=== PATIENT | male | born 1950 | race Caucasian/White ===

== ENCOUNTER 2024-03-02 12:27 | Outpatient (CLI) | payer MEDICARE, SELFPAY ==
--- NOTE | 2024-03-02 12:39 | CT_ITS ---
FINAL REPORT TECHNIQUE: Thin section axial images were obtained from the lung apices to the upper abdomen by computed tomography. Reformatted images were obtained and reviewed. This study was performed with techniques to keep radiation doses al low as reasonably achievable (ALARA). Individualized dose reduction techniques using automated exposure control or adjustment of mA and/or kV according to the patient's size were employed. CLINICAL HISTORY: SCREENING former smoker, quit 2.5 years ago. smoked 1 ppd x 50 years COMPARISON: None FINDINGS: CHEST CT LOW DOSE 73-year-old male, former smoker who quit 2 and half years ago, [id number] history. CTDI vol (mGy): 2.9 DLP (mGy-cm): 111.51 There is no axillary adenopathy. There is no mediastinal or hilar mass or adenopathy. The heart is normal in size. Severe coronary artery calcifications are present, responsible for the S designation. There is no pericardial or pleural effusion. Lung window images demonstrate a 3 mm lateral right upper lobe nodule best seen in image #20. There are also calcified granulomas present in the left upper lobe.. Limited images of the upper abdomen reveal a 16 mm low-attenuation mass in the right kidney, not accurately characterized without intravenous contrast, but which may represent a cyst.. IMPRESSION: Lung-RADS category 2S, the S designation for severe coronary artery calcifications. Recommend 12 month follow up low dose chest CT. Reviewed, Interpreted and Dictated by Gil Ray III, MD Transcribed by Yolanda Pablo Authenticated and [facility]
== END 2024-03-02 23:59 | disposition home or self-care (01) ==
LOC: RAD 12:28
PROVIDERS: PCP Internal Medicine Adolescent Medicine; Visit Provider Internal Medicine Adolescent Medicine
DX: Z87.891 Personal history of nicotine dependence (principal)
CPT/HCPCS: 71271

== ENCOUNTER 2024-03-16 07:01 | Outpatient (CLI) | payer MEDICARE, SELFPAY ==
[2024-03-16] VITALS (8 sets, daily range): BP systolic 82–149; BP diastolic 47–66; PULSE 58–80; RESP 16–18; TEMP 36.2; O2SAT 96–99; BMI 21.8
--- NOTE | 2024-03-16 07:08 | CT_ITS ---
APPROVED REPORT Draw Frame Runner: CLINICAL INDICATION Chest Pain TECHNIQUE Image Acquisition: A 128 slice MDCT scanner (Compass Enginea View) was used for data acquisition. A noncontrast coronary calcium scan was performed. A CT attenuation threshold of 130 Hounsfield units (HU) was used for the detection of calcium in contiguous voxels of 1 sq mm in area to be counted as individual lesions. Bolus tracking in the ascending aorta with a threshold of 180 HU was performed. Immediately afterwards, ECG synchronized cardiac CT was then performed from the cardiac base to apex using retrospective gating with ECG tube current modulation. A total of 85 mL of Isovue 370 mg/mL contrast medium was administered at 5 mL/sec followed by a saline flush using a biphasic injection protocol. A tube voltage of 120 KVp was used. The patient received the following medications prior to the cardiac CT. 125 mg of oral metoprolol 15 mg of oral ivabradine 0.8 mg of sublingual nitroglycerin The average heart rate at the time of acquisition was 55 bpm and regular. Image Reconstruction Transaxial images were reconstructed at 0.67 mm slide thickness. Data was reviewed interactively on an advanced workstation capable of 2 and 3-dimensional displays in all conventional reconstruction formats, including multiplanar reformations, maximum intensity projections, curved multiplanar reformations, and volume rendered reconstructions. When applicable, selected routine images describing the relevant coronary anatomy and pathology were saved and sent to PACS. Complications None Technical Quality Overall image quality was good. Coronary artery opacification was adequate. Total DLP (Dose-Length Product) is 1355.6 mGy-cm. The reported value represents the total of one or more individual components during the CT acquisition of this date and at this time, and as such, the same value may appear in more than one CT report depending on the interpreting/reporting physicians. COMPARISON None FINDINGS CT Coronary Calcium Scoring LMA (Left Main Artery) = 501 LAD (Left Anterior Descending) = 1130 LCX (Left Coronary Circumflex) = 65 RCA (Right Coronary Artery) = 1022 Total Calcium Score = 2717 using the AJ-130 method. The observed calcium score of 2717 is at 95th percentile for subjects of the same age, sex, and race/ethnicity. The interpretation of the calcium heart score is based on the following continuum*: 0 = no calcified plaque detected (risk of coronary artery disease is very low ??? less than 5%) 1-10 = calcium detected in extremely minimal levels (risk of coronary diseases is still low ??? less than 10%) 11-100 = mild levels of plaque detected with certainty (mild or minimal narrowing of heart arteries is likely) 101-400 = definite,at least moderate levels of plaque detected (relatively high risk of a heart attack within 3-5 years) >401-999 = extensive levels of plaque detected (high risk of heart attack, high levels of vascular disease are present, high likelihood of at least one significant coronary narrowing) *The calcium heart score quantifies the burden of coronary calcification/plaque in the coronary arteries. The calcium heart score is not able to evaluate the presence or burden of non-calcified (i.e. soft) plaque. There is also identifiable calcification in the ascending and descending thoracic aorta. Coronary CT Angiography The coronary arterial system is right dominant. Quantitative Stenosis Grading: Left Main (LM): The left main originates normally from the left sinus of Valsalva. The LM bifurcates into the left anterior descending artery and left circumflex artery. There is mixed calcified/noncalcified plaque in the ostial and proximal OM with up to
[2024-03-16 08:05] LABS: Anion Gap 11.4 mEq/L (5-15); Blood Urea Nitrogen 7 mg/dl (9-20); Calcium 9.8 mg/dl (8.4-10.2); Carbon Dioxide 27 mmol/L (22.0-30.0); Chloride 101 mmol/L (98-107); Creatinine Clearance Estimated 64 mL/min (50-200); Estimated Glomerular Filt Rate 111 ml/min (>60); GFR (African American) 135 ML/MIN (>60); Glucose 108 mg/dl (74-100); Potassium 4.4 mmoL/L (3.5-5.1); Sodium 135 mmol/L (136-145)
== END 2024-03-16 09:53 | disposition home or self-care (01) ==
PROVIDERS: PCP Internal Medicine Adolescent Medicine; Visit Provider Internal Medicine Adolescent Medicine
DX: I25.84 Coronary atherosclerosis due to calcified coronary lesion (principal); R07.9 Chest pain, unspecified
CPT/HCPCS: 36415; 75574; 80048; Q9967

== ENCOUNTER 2024-07-17 11:24 | Observation (INO) | payer MEDICARE, SELFPAY ==
[2024-07-17] VITALS (23 sets, daily range): BP systolic 99–151; BP diastolic 49–70; PULSE 75–103; RESP 10–18; TEMP 36.4–37; O2SAT 94–100; BMI 22.1; BMI 21.7
--- NOTE | 2024-07-17 11:33 | XR_ITS ---
PROCEDURE INFORMATION: Exam: XR Chest Exam date and time: 07/17/2024 11:44 AM Age: 73 years old Clinical indication: Cough and shortness of breath TECHNIQUE: Imaging protocol: Radiologic exam of the chest. Views: 1 view. COMPARISON: CT LUNG SCREENING 03/02/2024 12:41 PM FINDINGS: Lungs: Lung delgado appear somewhat hyperlucent and mildly hyperinflated likely secondary to COPD. No infiltrates or overt CHF. Pleural spaces: Unremarkable. No pleural effusion. No pneumothorax. Heart/Mediastinum: Unremarkable. No cardiomegaly. Bones/joints: No acute bony abnormalities detected. IMPRESSION: COPD. No active disease.
--- NOTE | 2024-07-17 11:38 | ECG_ITS ---
APPROVED REPORT Exam: Resting ECG HR:90 bpm ECG Measurements Heart Rate 90 AXES WV 144 P 68 QRSd 101 QRS 52 QT 349 T 64 QTc 396 Conclusion SINUS RHYTHM NORMAL ECG INTERPRETATION BASED ON A DEFAULT AGE OF 40 YEARS UNCONFIRMED REPORT Electronically signed by : Charles Ordonez, 07/21/2024 23:24:56
--- NOTE | 2024-07-17 11:50 | PC.NURSE ---
radiology at bedside.
[2024-07-17 11:53] LABS: Albumin Level 4.1 g/dl (3.5-5.0); Chloride 103 mmol/L (98-107); Potassium 3.6 mmoL/L (3.5-5.1); Sodium 133 mmol/L (136-145)
[2024-07-17 11:56] LABS: Alanine Aminotransferase 27 U/L (12-78); Albumin/Globulin Ratio 2.1 (1.1-1.8); Alkaline Phosphatase 61 U/L (38-126); Anion Gap 10.6 mEq/L (5-15); Aspartate Amino Transferase 35 U/L (17-59); Bilirubin,Total 0.5 mg/dl (0.2-1.3); Blood Urea Nitrogen 11 mg/dl (9-20); Calcium 8.8 mg/dl (8.4-10.2); Carbon Dioxide 23 mmol/L (22.0-30.0); Creatinine Clearance Estimated 65 mL/min (50-200); Estimated Glomerular Filt Rate 111 ml/min (>60); GFR (African American) 135 ML/MIN (>60); Glucose 111 mg/dl (74-100); Total Protein,Serum 6.1 g/dl (6.3-8.2)
[2024-07-17 12:08] LABS: Troponin I < 0.01 ng/ml (0.00-0.034)
--- NOTE | 2024-07-17 12:09 | ED_ITS ---
<Statement entered by Shavon Ordonez MD - 07/17/24 14:39> I was consulted by the JONNY, and we discussed the complexity of the problems being addressed. I approved the treatment and management plan for this patient's care in the emergency department, thus performing a substantive portion of the medical decision making. Shavon Ordonez MD, ABEL, FACEP Discharge Plan Disposition Patient Disposition: Admitted Chief Complaint: Dizziness Discharge ED Provider: Shavon Ordonez General Adult HPI General Chief complaint: Dizziness Stated complaint: lab work and weakness Time Seen by Provider: 07/17/24 12:08 Mode of Arrival: Ambulatory Source of Information: Patient Limitations: No Limitations Description of Symptoms (Recalled from ER Triage Doc. by RN): pt presents from Dr. Wyman office with black tarry stool, dizziness/weakness, and possible pneumonia. pt states he first noticed his stool this past . pt alert and oriented. History of Present Illness HPI narrative: Patient presents for evaluation of melena and dizziness. Patient gives a 1 week history of dark tarry sticky stool since last . Additionally over the same time. Patient reports that he has been feeling dizzy on exertion that goes away with rest. He saw his PCP today who apparently told him that he could possibly have pneumonia in his left lung although I do not know if he did blood work. He denies chest pain fever chills hemoptysis hematochezia hematemesis hematuria. He is on aspirin and Plavix for peripheral vascular disease and femoral stents Related Data Home Medications ?Medication ?Instructions ?Recorded ?Confirmed amlodipine 10 mg tablet 10 mg PO DAILY 03/16/24 03/16/24 aspirin 81 mg capsule 81 mg PO DAILY 03/16/24 03/16/24 atorvastatin 40 mg tablet 40 mg PO DAILY 03/16/24 03/16/24 bisoprolol fumarate 5 mg tablet 5 mg PO DAILY 03/16/24 03/16/24 clopidogrel 75 mg tablet (Plavix) 75 mg PO DAILY 03/16/24 03/16/24 hydroxychloroquine 200 mg tablet 200 mg PO DAILY 03/16/24 03/16/24 multivit with minerals-folic 600 cap PO DAILY 03/16/24 03/16/24 acid-lycopene 0.4 mg-600 mcg capsule (Men's Daily) tamsulosin 0.4 mg capsule (Flomax) 0.4 mg PO DAILY 03/16/24 03/16/24 Allergies Allergy/AdvReac Type Severity Reaction Status Date / Time diclofenac Allergy Verified 03/16/24 07:39 Penicillins Allergy Verified 03/16/24 07:39 [facility] Disclaimer: The information contained in this section may have been updated after the patient was seen, as this information can be updated by other users. Medical History (Updated 03/16/24 @ 07:54 by Vince Sharma) Rheumatoid arteritis Skin cancer COPD (chronic obstructive pulmonary disease) Hyperlipidemia Hypertension Coronary artery disease Surgical History (Updated 03/16/24 @ 07:38 by Vince Sharma) H/O hernia repair History of xsfpy-ekxkf-zyescov bypass Social History (Updated 03/16/24 @ 07:41 by Vince Sharma) Smoking Status: Former smoker alcohol intake: current current occupational status: retired Other Medical History Have you received the Flu Vaccine for this season: No Have you received the Pneumonia Vaccine: No ROS Obtained: Yes Systems reviewed as appropriate & no additional complaints except as documented Physical Exam General General appearance: alert and in no apparent distress Respiratory Respiratory exam: Present normal lung sounds bilaterally Cardiovascular Cardiovascular exam: Present regular rate Neurological Exam Neurological exam: Present alert and oriented X3 Medical Decision Making Medical Records Medical records reviewed: Yes I reviewed the patient's medical records. Screening: Per USPSTF and CDC recommendations, given the prevalence of disease in our region, it is our hospital?s policy to screen for HIV and viral Hepatitis for all patients aged 18 and over and those with ongoing risk factors. [place] Inquiry Pt receiving controlled substance: No Vital Signs: 07/17/24 11:25 07/17/24 12:00 07/17/24 12:30 Temperature 98.2 F Temperature Source Oral Pulse Rate 75 79 Pulse Rate [Right Radial] 92 H Respiratory Rate 18 14 10 L Blood Pressure 141/63 H 139/65 Blood Pressure [Right Arm] 126/68 Blood Pressure Mean [Right Arm] 87 Blood Pressure Source Blood Pressure Source [Right Arm] Automatic Cuff Blood Pressure Position Blood Pressure Position [Right Arm] Sitting 02 Sat by Pulse Oximetry 99 100 99 Oxygen Delivery Method Room Air Room Air Room Air 07/17/24 12:42 07/17/24 12:46 07/17/24 13:00 Temperature Temperature Source Pulse Rate 91 H 88 79 Pulse Rate [Right Radial] Respiratory Rate 12 18 12 Blood Pressure 145/60 H 145/60 H 145/63 H Blood Pressure [Right Arm] Blood Pressure Mean [Right Arm] Blood Pressure Source Automatic Cuff Blood Pressure Source [Right Arm] Blood Pressure Position Sitting Blood Pressure Position [Right Arm] 02 Sat by Pulse Oximetry 99 99 98 Oxygen Delivery Method Room Air Room Air Room Air 07/17/24 13:14 Temperature 98.2 F Temperature Source Oral Pulse Rate 78 Pulse Rate [Right Radial] Respiratory Rate 18 Blood Pressure 145/63 H Blood Pressure [Right Arm] Blood Pressure Mean [Right Arm] Blood Pressure Source Automatic Cuff Blood Pressure Source [Right Arm] Blood Pressure Position Supine Blood Pressure Position [Right Arm] 02 Sat by Pulse Oximetry Oxygen Delivery Method Room Air Lab Data Lab results reviewed: Yes I reviewed the patient's lab results. Lab Results 07/17/24 11:30: WBC 6.6, RBC 2.79 L, Hgb 9.1 L, Hct 26.7 L, MCV 95.7 H, MCH 32.6 H, MCHC 34.1, RDW 13.7, Plt Count 214, MPV 7.6, Neut % (Auto) 79.1, Lymph % (Auto) 13.0, Mcminn % (Auto) 6.9, Eos % (Auto) 0.4, Baso % (Auto) 0.5, Neut # (Auto) 5.3, Lymph # (Auto) 0.9, Mcminn # (Auto) 0.5, Eos # (Auto) 0.0, Baso # (Auto) 0.0, Sodium 133 L, Potassium 3.6, Chloride 103, Carbon Dioxide 23, Anion Gap 10.6, BUN 11, Creatinine 0.70, Estimated Creat Clear 65, Estimated GFR 111, Est GFR ( Amer) 135, Glucose 111 H, Calcium 8.8, Total Bilirubin 0.5, AST 35, ALT 27, Alkaline Phosphatase 61, Troponin I < 0.01, Total Protein 6.1 L, Albumin 4.1, Globulin 2.0, Albumin/Globulin Ratio 2.1 H, Blood Type O Positive, Antibody Screen Negative 07/17/24 12:15: Stool Occult Blood Positive A 07/17/24 11:30 07/17/24 11:30 Orders (Tests/Meds): ED MEDICATIONS Generic Name Dose Route Start Last Admin Trade Name Freq PRN Reason Stop Dose Admin Pantoprazole Sodium 80 mg/ 100 mls @ 10 mls/hr 07/17/24 12:30 07/17/24 12:45 Sodium Chloride IV 07/20/24 12:29 10 mls/hr .Q10H LUBNA Administration Sodium Chloride 10 ml 07/17/24 11:40 07/17/24 12:42 Sodium Chloride 0.9% 10ml Flush Syringe IV 08/16/24 11:39 10 ml NEEDED PRN Administration Maintain IV Site Sodium Chloride 10 ml 07/17/24 12:42 07/17/24 12:42 Sodium Chloride 0.9% 10ml Syr (Rad Only) IV 08/16/24 12:41 10 ml NEEDED PRN Administration Maintain IV Site Discontinued Medications Generic Name Dose Route Start Last Admin Trade Name Trevorq PRN Reason Stop Dose Admin Iopamidol 75 ml 07/17/24 12:42 07/17/24 12:42 Iopamidol-370 (76%);100ml Bottle IV 07/17/24 12:43 75 ml ONCE ONE Administration ORDERS Category Date Time Status Type and Screen Stat BBK 07/17/24 11:[address] abdomen pelvis w con Stat Cat Scan 07/17/24 12:21 Completed Gastroenterology Consult [Consult to Gastroenterology] Cons 07/17/24 12:59 Active [CONS] Routine XR chest portable Stat Exams 07/17/24 11:33 Completed Complete Blood Count Auto Diff Stat Lab 07/17/24 11:30 Completed Comprehensive Metabolic Panel Stat Lab 07/17/24 11:30 Completed HIV (1&2) Antibody Rapid Stat Lab 07/17/24 11:30 Received Hep C Ab with Reflex to RNA Stat Lab 07/17/24 11:30 Received Occult Blood,Stool Stat Lab 07/17/24 12:15 Completed Troponin I Q3H Lab 07/17/24 14:45 Ordered Troponin I Q3H Lab 07/17/24 17:45 Ordered Troponin I Stat Lab 07/17/24 11:30 Completed Medical Decision Narrative: In summary patient is a 73-year-old male who presents to the emergency department for evaluation of melena and dizziness on exertion. Patient is initially normotensive at 126/68 heart rate 92 satting at 99% on room air breathing 18 times a minute upon arrival, afebrile. Physical exam is remarkable for dark stool at the rectum and digital rectal exam confirms dark stool. It appears to be melanotic. He has no external hemorrhoids, normal breath sounds, Terri Coma Score 15 awake alert and oriented person place and circumstance bilateral tympanic membranes are normal. Differential diagnosis includes upper GI bleed versus vertigo versus dark stool due to medications etc. Initial workup will be conducted with stool for occult blood, CT scan abdomen pelvis, hematologic labs. Initial interventions were considered however we will await full workup before initiating. Initial workup reviewed by me shows that his stool is guaiac positive, hemoglobin hematocrit are 9.1 and 26.7 respectively with no shift, my informal interpretation of his plain film chest x-ray shows no acute intrathoracic problems however he does have COPD changes, my informal interpretation of CT scan abdomen pelvis shows no acute processes prior to radiology read. Given this I had interactive discussion with Dr. Johnson of gastroenterology regarding patient management and he will be started on a Protonix drip, held n.p.o. for endoscopy either later today or possibly tomorrow. Then I had an interactive discussion with hospital medicine regarding patient management and he will be admitted for further evaluation and care Critical Care Critical Care Time Critical Care Time: No
--- NOTE | 2024-07-17 12:16 | PC.NURSE ---
Jean Claude Rendon PAC at bedside
[2024-07-17 12:18] LABS: Basophils % 0.5 % (0.1-2.0); Eosinophils % 0.4 % (0.1-12.0); Hematocrit 26.7 % (42.0-52.0); Hemoglobin 9.1 g/dL (14.1-18.0); Lymphocytes # 0.9 K/mm3 (0.7-4.5); Mean Corpuscular HGB Conc 34.1 g/dL (31.8-35.4); Mean Corpuscular Hemoglobin 32.6 pg (27.0-31.2); Mean Corpuscular Volume 95.7 fl (80-94); Mean Platelet Volume 7.6 fl (7.4-10.4); Monocytes # 0.5 K/mm3 (0.1-1.0); Monocytes % 6.9 % (1.7-9.3); Neutrophils # 5.3 K/mm3 (1.8-7.8); Neutrophils % 79.1 % (37.0-80.0); Platelet Count 214 K/mm3 (142-424); Red Blood Count 2.79 M/mm3 (4.60-6.20); Red Cell Distribution Width 13.7 % (11.5-17.5); White Blood Count 6.6 K/mm3 (4.8-10.8)
--- NOTE | 2024-07-17 12:21 | CT_ITS ---
PROCEDURE INFORMATION: Exam: CT Abdomen And Pelvis With Contrast Exam date and time: 07/17/2024 12:35 PM Age: 73 years old Clinical indication: Abdominal pain; Localized; Left lower quadrant (llq); Additional info: Melena, left lower quadrant pain TECHNIQUE: Imaging protocol: Computed tomography of the abdomen and pelvis with contrast. Radiation optimization: All CT scans at this facility use at least one of these dose optimization techniques: automated exposure control; mA and/or kV adjustment per patient size (includes targeted exams where dose is matched to clinical indication); or iterative reconstruction. Contrast material: ISOVUE; Contrast volume: 75 ml; Contrast route: IV; COMPARISON: CT LUNG SCREENING 03/02/2024 12:41 PM FINDINGS: Lungs: Lung bases are clear. Diaphragm: Small hiatal hernia. Liver: There are few small hypodensities within the liver too small to adequately characterize but statistically likely representing small liver cysts. Gallbladder and biliary ducts: Normal. No calcified stones. No ductal dilation. Pancreas: Unremarkable. Main pancreatic duct is not significantly dilated. Spleen: There are scattered calcified granulomas within the spleen, longstanding, otherwise spleen is unremarkable. Adrenal glands: Normal. No mass. Kidneys and ureters: Small cortical cyst right kidney otherwise kidneys unremarkable. Stomach and bowel: Distal 3rd portion of the large bowel is collapsed somewhat limiting assessment. Few scattered diverticuli sigmoid colon without evidence of acute diverticulitis. Appendix: No evidence of acute appendicitis. Intraperitoneal space: Unremarkable. No free air. No significant fluid collection. Vasculature: Abdominal aorta and iliac vessels are diffusely calcified. Origin of the celiac trunk and proximal segment of the SMA are calcified with some narrowing present. There is a left renal stent present. Right renal artery is calcified at its origin. No occlusion. There is no aortic aneurysm. There is a patent fem-fem bypass graft. Lymph nodes: Unremarkable. No enlarged lymph nodes. Urinary bladder: Unremarkable as visualized. Reproductive: Unremarkable as visualized. Bones/joints: Mild compression deformity superior endplate of T12 and L4 vertebral body likely chronic. No acute bony abnormalities detected. Soft tissues: Unremarkable. IMPRESSION: 1. No acute findings within the abdomen or pelvis. 2. Diffuse atherosclerotic changes of the abdominal aorta, iliac vessels and mesenteric branches.
[2024-07-17 12:22] LABS: Occult Blood,Stool Positive (Negative)
[2024-07-17] MEDS: SODIUM CHLORIDE 0.9% 10ML FLUSH SYRINGE 10 ML IV (12:42)
[2024-07-17] MEDS: SODIUM CHLORIDE 0.9% 10ML SYR (RAD ONLY) 10 ML IV (12:42)
[2024-07-17] MEDS: IOPAMIDOL-370 (76%);100ML BOTTLE 75 ML IV (12:42)
[2024-07-17] MEDS: PANTOPRAZOLE SODIUM 80 MG in 0.9 % SODIUM CHLORIDE 100 ML 10 MG IV (12:45)
--- NOTE | 2024-07-17 13:05 | PC.NURSE ---
horticultural services supervisor notified of admission
--- NOTE | 2024-07-17 14:07 | P.HP_ITS ---
History of Present Illness *Admission Date: 07/17/24 *Reason for visit:: soa with exertion *History of present illness: Mr. Doll is a 73-year-old male with history of hypertension, CAD, PAD, BPH, arthritis. Presented from his primary care's office to the ER due to concern of dyspnea with exertion. Initial concern for possible pneumonia versus other cause of his fatigue. Patient complains of having black tarry stool, dizziness, weakness progressive over the past week. Denies any fever, chest pain, cough. Has been having some abdominal pain. Feeling dizzy on exertion. Initial workup in the ER concerning for hemoglobin of 9.1, stool guaiac positive. GI consulted and patient being taken for EGD today. Medicine consulted for admission. Of note, patient is on aspirin and Plavix for his PAD/CAD. No stenting in several years. Has never had cardiac stents. Stable on room air. at bedside helps supplement history. [facility] Disclaimer: The information contained in this section may have been updated after the patient was seen, as this information can be updated by other users. Medical History (Updated 07/17/24 @ 18:36 by Charles Puente MD) Rheumatoid arteritis Skin cancer COPD (chronic obstructive pulmonary disease) Hyperlipidemia Hypertension Coronary artery disease Surgical History H/O hernia repair History of puybl-uraod-rwrnmbf bypass Social History (Updated 07/17/24 @ 14:44 by Zia Dickinson CRNA) Smoking Status: Former smoker alcohol intake: current substance use type: denies use current occupational status: retired Travel in the last 8 weeks: None Other Medical History Have you received the Flu Vaccine for this season: Yes Have you received the Pneumonia Vaccine: Yes Meds Home Medications and Allergies Home Medications ?Medication ?Instructions ?Recorded ?Confirmed ?Type amlodipine 10 mg tablet 10 mg PO DAILY 03/16/24 07/17/24 History aspirin 81 mg capsule 81 mg PO DAILY 03/16/24 07/17/24 History atorvastatin 40 mg tablet 40 mg PO DAILY 03/16/24 07/17/24 History clopidogrel 75 mg tablet (Plavix) 75 mg PO DAILY 03/16/24 07/17/24 History hydroxychloroquine 200 mg tablet 200 mg PO DAILY 03/16/24 07/17/24 History multivit with minerals-folic 1 cap PO DAILY 03/16/24 07/17/24 History acid-lycopene 0.4 mg-600 mcg capsule (Men's Daily) tamsulosin 0.4 mg capsule (Flomax) 0.4 mg PO DAILY 03/16/24 07/17/24 History clobetasol 0.05 % topical ointment 1 applic topical BID 07/17/24 07/17/24 History losartan 100 mg tablet 100 mg PO DAILY 07/17/24 07/17/24 History nebivolol 10 mg tablet 10 mg PO DAILY 07/17/24 07/17/24 History New Prescriptions to Start Prescriptions: Allergies Allergy/AdvReac Type Severity Reaction Status Date / Time diclofenac Allergy Verified 03/16/24 07:39 Penicillins Allergy Verified 03/16/24 07:39 Exam Data for Last 24 hours Vital signs and Labs for Last 24 Hours: Temp Pulse Resp BP Pulse Ox O2 Del Method 98.2 F 80 18 128/69 99 Room Air 07/17/24 13:14 07/17/24 13:37 07/17/24 13:37 07/17/24 13:37 07/17/24 13:37 07/17/24 13:37 Laboratory Results - last 24 hr 07/17/24 11:30: WBC 6.6, RBC 2.79 L, Hgb 9.1 L, Hct 26.7 L, MCV 95.7 H, MCH 32.6 H, MCHC 34.1, RDW 13.7, Plt Count 214, MPV 7.6, Neut % (Auto) 79.1, Lymph % (Auto) 13.0, [place] % (Auto) 6.9, Eos % (Auto) 0.4, Baso % (Auto) 0.5, Neut # (Auto) 5.3, Lymph # (Auto) 0.9, [place] # (Auto) 0.5, Eos # (Auto) 0.0, Baso # (Auto) 0.0, Sodium 133 L, Potassium 3.6, Chloride 103, Carbon Dioxide 23, Anion Gap 10.6, BUN 11, Creatinine 0.70, Estimated Creat Clear 65, Estimated GFR 111, Est GFR ( Amer) 135, Glucose 111 H, Calcium 8.8, Total Bilirubin 0.5, AST 35, ALT 27, Alkaline Phosphatase 61, Troponin I < 0.01, Total Protein 6.1 L, Albumin 4.1, Globulin 2.0, Albumin/Globulin Ratio 2.1 H, Blood Type O Positive, Antibody Screen Negative 07/17/24 12:15: Stool Occult Blood Positive A I & O for Last 24 hours: Intake & Output 07/14/24 07/15/24 07/16/24 07/17/24 23:59 23:59 23:59 23:59 Weight 66.735 kg Constitutional Constitutional: no acute distress, thin, chronically ill appearing and cooperative *Routine HEENT Exam Head: Present normocephalic Eye: Present EOMI and PERRL ENT: Present mucous membranes moist *Routine Neck Exam Neck: Present supple *Routine Respiratory Exam Respiratory: Present CTA bilaterally; Absent rhonchi, stridor, wheezes or crackles *Routine Cardiovascular Exam Cardiovascular: Present RRR *Routine Abdominal Exam Abdominal: Present soft, normoactive bowel sounds and tenderness (Epigastric) *Routine Rectal Exam Rectal:: deferred *Routine Genitalia Exam Genitalia:: deferred *Routine Extremities Exam Extremities: Absent cyanosis, clubbing or edema *Routine Skin Exam Skin: Present warm; Absent rash Comments: Significant changes in skin color on arms from bruising and blood thinners. *Routine Neurological Exam Neurological: Present alert, oriented X3 and moving all extremities; Absent altered mental status Assessment and Plan *Assessment and plan (1) Upper GI bleeding: Status: Acute Category: Medical Code(s): K92.2 - Gastrointestinal hemorrhage, unspecified (2) Acute blood loss anemia: Status: Acute Category: Medical Code(s): D62 - Acute posthemorrhagic anemia (3) Melena: Status: Acute Category: Medical Code(s): K92.1 - Melena (4) PAD (peripheral artery disease): Status: Chronic Category: Medical Code(s): I73.9 - Peripheral vascular disease, unspecified (5) Coronary artery disease: Status: Chronic Qualifiers: Coronary Disease-Associated Artery/Lesion type: [place] artery [place] vs. transplanted heart: [place] heart Associated angina: without angina Qualified Code(s): I25.10 - Atherosclerotic heart disease of [place] coronary artery without angina pectoris Category: Medical Code(s): I25.10 - Atherosclerotic heart disease of [place] coronary artery without angina pectoris (6) Hypertension: Status: Chronic Qualifiers: Hypertension type: primary hypertension Qualified Code(s): I10 - Essential (primary) hypertension Category: Medical Code(s): I10 - Essential (primary) hypertension (7) COPD (chronic obstructive pulmonary disease): Status: Chronic Qualifiers: COPD type: unspecified COPD Qualified Code(s): J44.9 - Chronic obstructive pulmonary disease, unspecified Category: Medical Code(s): J44.9 - Chronic obstructive pulmonary disease, unspecified (8) BPH (benign prostatic hyperplasia): Status: Chronic Qualifiers: Lower urinary tract symptom presence: unspecified whether lower urinary tract symptoms present Qualified Code(s): N40.0 - Benign prostatic hyperplasia without lower urinary tract symptoms Category: Medical Code(s): N40.0 - Benign prostatic hyperplasia without lower urinary tract symptoms Plan 73-year-old male who presents with dyspnea with exertion. Found to have significant anemia. Concern for GI bleed given positive stool guaiac. Discussed case with ER physician, request admission for further management, ser ial labs, GI consult. I agreed to admit for further treatment. Initiated on pantoprazole. Taken for EGD. Problems addressed as follows Upper GI bleed Symptomatic anemia secondary to blood loss -Patient on aspirin and Plavix for his PAD/CAD. Will hold these at this time. -Discussed case with GI, found to have Nida-Weaver tear on EGD. Will continue pantoprazole 40 mg twice daily, load with 80 mg once -Initiate clear liquid diet. Monitor for tolerance -Serial labs with repeat H&H in the morning unless there is further active signs of bleeding or patient becomes more symptomatic. Transfusion threshold hemoglobin less than 7. -Iron studies pending. Low threshold to transfuse Venofer -Repeat CBC, CMP, magnesium ordered for the morning. -Labs relatively normal with sodium 137, potassium 3.6, kidney function normal with BUN 11, creatinine 0.7. CAD PAD Hypertension -Holding antiplatelet therapy as above. -Continue amlodipine 10 mg daily, Lipitor 40 mg daily for cholesterol, losartan 100 mg daily, and nebivolol 10 mg daily. Continue tamsulosin 0.4 mg daily for BPH Full code Clear liquid diet Holding anticoagulation in the setting of GI bleed
[2024-07-17] MEDS: ERYTHROMYCIN 250 MG TABLET PO (14:33)
--- NOTE | 2024-07-17 14:40 | HMH.PHAINT1 ---
Pharmacy Intervention Comments: MEDICATION RECONCILIATION COMPLETED ON PATIENT USING EXTERNAL FILL HISTORY FROM PHARMACY. -SANDRA KAY, MID
--- NOTE | 2024-07-17 14:44 | EXP.ANES.CKL ---
[facility] Disclaimer: The information contained in this section may have been updated after the patient was seen, as this information can be updated by other users. Medical History Rheumatoid arteritis Skin cancer COPD (chronic obstructive pulmonary disease) Hyperlipidemia Hypertension Coronary artery disease Surgical History H/O hernia repair History of berrk-wboyr-cjxrzjf bypass Social History Smoking Status: Former smoker alcohol intake: current substance use type: denies use current occupational status: retired [employer] Anesthesia Checklist Patient Identification Patient Identification: Arm Band Structural Data Admitted From: Inpatient Planned Operative Procedure/s: EGD Consent for Planned Operative Procedure(s) Verified: Yes Verified Documents: Surgical Consent and History and Physical NPO Status Verified Time NPO: 07:30 (coffee) Additional verifications Anesthesia Reactions: No Hx Blood Transfusions: No Blood Transfusion Reaction: No Airway Assessment Mallampati Score:: Class II C-Spine Mobility Assessed: Yes TMJ Mobility Assessed: Yes Dentition: Poor Dentition Neurological Assessment Level of Consciousness: Awake, Alert and Appropriate Anesthesia Plan Anesthesia Risk discussed: Yes Anesthesia Plan: Verified ASA Class: III Anesthesia Type: MAC
--- NOTE | 2024-07-17 15:02 | EXP.HP ---
History of Present Illness *Admission Date: 07/17/24 *Reason for visit:: Upper GI bleed-melena *History of present illness: Mr. Doll is a 73-year-old gentleman who is here for hospital admission with upper GI bleed and melena. The examination is deemed medically necessary for EGD. The patient has been seen, interviewed and examined prior to the procedure by both myself and the anesthesia provider. [facility] Disclaimer: The information contained in this section may have been updated after the patient was seen, as this information can be updated by other users. Medical History Rheumatoid arteritis Skin cancer COPD (chronic obstructive pulmonary disease) Hyperlipidemia Hypertension Coronary artery disease Surgical History H/O hernia repair History of tmboz-rxhxo-alefjkb bypass Social History (Updated 07/17/24 @ 14:44 by Zia Dickinson CRNA) Smoking Status: Former smoker alcohol intake: current substance use type: denies use current occupational status: retired Travel in the last 8 weeks: None Other Medical History Have you received the Flu Vaccine for this season: Yes Have you received the Pneumonia Vaccine: Yes Review of Systems Review of Systems Review of systems (narrative): Negative *Cardiovascular Comments: Negative *Gastrointestinal Comments: Negative *Genitourinary Comments: Negative *Musculoskeletal Comments: Negative *Neurologic Comments: Negative Meds Home Medications and Allergies Home Medications ?Medication ?Instructions ?Recorded ?Confirmed ?Type amlodipine 10 mg tablet 10 mg PO DAILY 03/16/24 07/17/24 History aspirin 81 mg capsule 81 mg PO DAILY 03/16/24 07/17/24 History atorvastatin 40 mg tablet 40 mg PO DAILY 03/16/24 07/17/24 History clopidogrel 75 mg tablet (Plavix) 75 mg PO DAILY 03/16/24 07/17/24 History hydroxychloroquine 200 mg tablet 200 mg PO DAILY 03/16/24 07/17/24 History multivit with minerals-folic 1 cap PO DAILY 03/16/24 07/17/24 History acid-lycopene 0.4 mg-600 mcg capsule (Men's Daily) tamsulosin 0.4 mg capsule (Flomax) 0.4 mg PO DAILY 03/16/24 07/17/24 History clobetasol 0.05 % topical ointment 1 applic topical BID 07/17/24 07/17/24 History losartan 100 mg tablet 100 mg PO DAILY 07/17/24 07/17/24 History nebivolol 10 mg tablet 10 mg PO DAILY 07/17/24 07/17/24 History New Prescriptions to Start Prescriptions: Allergies Allergy/AdvReac Type Severity Reaction Status Date / Time diclofenac Allergy Verified 03/16/24 07:39 Penicillins Allergy Verified 03/16/24 07:39 Exam Data for Last 24 hours Vital signs and Labs for Last 24 Hours: Temp Pulse Resp BP Pulse Ox O2 Del Method O2 Flow Rate 98.2 F 80 18 128/69 99 Nasal Cannula 5 07/17/24 13:14 07/17/24 13:37 07/17/24 13:37 07/17/24 13:37 07/17/24 13:37 07/17/24 14:57 07/17/24 14:57 Laboratory Results - last 24 hr 07/17/24 11:30: WBC 6.6, RBC 2.79 L, Hgb 9.1 L, Hct 26.7 L, MCV 95.7 H, MCH 32.6 H, MCHC 34.1, RDW 13.7, Plt Count 214, MPV 7.6, Neut % (Auto) 79.1, Lymph % (Auto) 13.0, [place] % (Auto) 6.9, Eos % (Auto) 0.4, Baso % (Auto) 0.5, Neut # (Auto) 5.3, Lymph # (Auto) 0.9, [place] # (Auto) 0.5, Eos # (Auto) 0.0, Baso # (Auto) 0.0, Sodium 133 L, Potassium 3.6, Chloride 103, Carbon Dioxide 23, Anion Gap 10.6, BUN 11, Creatinine 0.70, Estimated Creat Clear 65, Estimated GFR 111, Est GFR ( Amer) 135, Glucose 111 H, Calcium 8.8, Total Bilirubin 0.5, AST 35, ALT 27, Alkaline Phosphatase 61, Troponin I < 0.01, Total Protein 6.1 L, Albumin 4.1, Globulin 2.0, Albumin/Globulin Ratio 2.1 H, Blood Type O Positive, Antibody Screen Negative 07/17/24 12:15: Stool Occult Blood Positive A I & O for Last 24 hours: Intake & Output 11/22/24 11/23/24 11/24/24 11/25/24 23:59 23:59 23:59 23:59 Weight 147 lb 2 oz *Routine HEENT Exam Head: Present normocephalic Eye: Present EOMI and PERRL ENT: Present mucous membranes moist *Routine Neck Exam Neck: Present supple *Routine Respiratory Exam Respiratory: Present CTA bilaterally *Routine Cardiovascular Exam Cardiovascular: Present RRR *Routine Abdominal Exam Abdominal: Present soft and normoactive bowel sounds; Absent tenderness *Routine Rectal Exam Rectal:: deferred *Routine Genitalia Exam Genitalia:: deferred *Routine Extremities Exam Extremities: Absent cyanosis, clubbing or edema *Routine Skin Exam Skin: Present warm; Absent rash *Routine Neurological Exam Neurological: Present alert and oriented X3 Assessment and Plan *Assessment and plan (1) Melena: Status: Acute Category: Medical Code(s): K92.1 - Melena (2) Upper GI bleeding: Status: Acute Category: Medical Code(s): K92.2 - Gastrointestinal hemorrhage, unspecified Plan A/P: 1. Upper GI bleed with melanotic stool is the preprocedural diagnosis. The patient will be anesthetized/sedated using MAC sedation. The patient has been seen and examined. Cardiac and lung assessment prior to the examination is stable. Proceed with planned EGD
--- NOTE | 2024-07-17 15:03 | P.PCN_ITS ---
[facility] Procedure Note Date: 07/17/24 Time: 15:17 Procedure Note:: Upper Endoscopy Procedure Report: Esophagogastroduodenoscopy with epinephrine injection submucosal, APC ablation and cold biopsies Endoscopost: Colt Johnson II, MD Referring Physician: Caleb Wyman M.D. Date of Procedure: July 17, 2024 Equipment: Olympus GIF 190 standard upper endoscope Sedation: MAC sedation Indications: Mr. Doll is a 73-year-old gentleman who presents with melanotic stools to the emergency department for 4 to 5 days. He has had some upper abdominal discomfort which is very mild. He is on Plavix and aspirin. He reports no hematemesis. His hemoglobin and hematocrit in the emergency department were 9.1 and 26.7. Liver chemistries are normal. His BUN and creatinine were 11 and 0.70. Stool testing was positive for occult blood. CT scan of the abdomen and pelvis showed no acute findings within the abdomen or pelvis but did show diffuse atherosclerotic changes of the abdominal aorta, iliac vessels and mesenteric branches. There was calcification of the celiac and proximal segment of the SMA with some narrowing present. Procedure: Prior to the procedure, a history and physical exam was performed, and patient's medications and allergies were reviewed. The risks, benefits and alternatives of the sedation and procedure were discussed with the patient. All questions were answered and informed consent was obtained. The patient was brought to the procedure room. Patient identification and proposed procedure were verified by the physician and the nurse. The patient was placed in a left lateral decubitus position and the scope was passed under direct vision. Throughout the procedure, the patient's blood pressure, pulse, and oxygen saturations were monitored continuously. The upper GI endoscopy was accomplished without difficulty. The patient tolerated the procedure well. Findings: The scope was passed directly into the upper esophagus and advanced to the third portion of the duodenum. There was a 5 to 6 mm polyp in the third portion of the duodenum that was removed via cold biopsy. The second portion, first portion of duodenum were normal. There was some mild peptic duodenitis of the duodenal bulb but no ulcerations. The scope was withdrawn through a normal pylorus and of the stomach. There was evidence of chronic gastritis of the antrum body and fundus that was mild to moderate. Biopsies were taken along the lesser curvature to rule out H. pylori. There were no ulcerations or erosions within the stomach. Upon retroflexion there was a 3 cm medium sized hiatal hernia. The scope was then withdrawn into the esophagus. At the GE junction there was heme and a small Nida-Weaver tear. Only 2 cc of 1-10,000 epinephrine was injected submucosally and utilized to slow this oozing of blood. Next, the APC was utilized to ablate this venous oozing. There was no evidence of reflux esophagitis or Pickard's. There were no esophageal or gastric varices. The remainder of the esophageal mucosa was normal. Impression: 1. Nida-Weaver tear with some venous oozing of blood status post 1-10,000 submucosal epinephrine and APC ablation 2. Medium sized 3 cm hiatal hernia 3. Moderate chronic gastritis/peptic duodenitis 4. Small duodenal polyp Plan: I would continue PPI therapy and switch to oral PPI therapy. The patient can begin clear liquids today and advance his diet. I will follow-up the biopsies to rule out H. pylori. The patient does have some moderate mesenteric atherosclerotic disease and there was some blanching of the gastric mucosa. I do feel that he has moderate potential for mesenteric angina. I will inquire about prior colonoscopy.
[2024-07-17] MEDS: EPINEPHrine 0.1 MG/ML 10ML SYRINGE (CRASH CART) 1 MG IV (15:19)
[2024-07-17 17:14] LABS: Troponin I < 0.01 ng/ml (0.00-0.034)
[2024-07-17] MEDS: PANTOPRAZOLE SODIUM 80 MG in 0.9 % SODIUM CHLORIDE 100 ML 100 MG IV (17:16)
[2024-07-17] MEDS: ACETAMINOPHEN 325MG TAB 650 MG PO (17:16)
[2024-07-17 17:33] LABS: Iron 58 ug/dL (49-181)
[2024-07-17 17:43] LABS: Total Iron Binding Capacity 333 ug/dL (261-462)
--- NOTE | 2024-07-17 17:52 | PC.NURSE ---
patient is alert and oriented x4, remains on RA, tolerating well in the high 90s. vital signs WDL and charted. has voided since arriving back from post op via bathroom independently. tolerating clear liquids. did c/o a headache, notified and treated per MAR. call light within reach, no further requests at this time.
[2024-07-17 20:11] LABS: Troponin I < 0.01 ng/ml (0.00-0.034)
[2024-07-17] MEDS: CARVEDILOL 12.5MG TABLET 12.5 MG PO (20:42)
[2024-07-17 21:45] LABS: HIV (1&2) Antibody Rapid NONREACTIVE (NONREACTIVE)
[2024-07-18] VITALS: BP 105/57; PULSE 75; RESP 16; TEMP 36.7; O2SAT 95
[2024-07-18 04:00] VITALS: BP 113/59; PULSE 80; RESP 16; TEMP 36.8; O2SAT 94; BMI 21.6
[2024-07-18 06:36] LABS: Alanine Aminotransferase 20 U/L (12-78); Albumin Level 3.2 g/dl (3.5-5.0); Albumin/Globulin Ratio 1.9 (1.1-1.8); Alkaline Phosphatase 52 U/L (38-126); Anion Gap 6.2 mEq/L (5-15); Aspartate Amino Transferase 27 U/L (17-59); Bilirubin,Total 0.5 mg/dl (0.2-1.3); Blood Urea Nitrogen 7 mg/dl (9-20); Calcium 8.3 mg/dl (8.4-10.2); Carbon Dioxide 25 mmol/L (22.0-30.0); Chloride 106 mmol/L (98-107); Creatinine Clearance Estimated 63 mL/min (50-200); Estimated Glomerular Filt Rate 111 ml/min (>60); GFR (African American) 135 ML/MIN (>60); Globulin 1.7 g/dL (1.3-3.2); Glucose 80 mg/dl (74-100); Magnesium 1.8 mg/dl (1.6-2.3); Potassium 3.2 mmoL/L (3.5-5.1); Sodium 134 mmol/L (136-145); Total Protein,Serum 4.9 g/dl (6.3-8.2)
[2024-07-18 06:42] LABS: Basophils % 0.7 % (0.1-2.0); Eosinophils % 1.4 % (0.1-12.0); Hematocrit 22.3 % (42.0-52.0); Lymphocytes # 0.8 K/mm3 (0.7-4.5); Lymphocytes % 26.1 % (10-50); Mean Corpuscular HGB Conc 35.2 g/dL (31.8-35.4); Mean Corpuscular Hemoglobin 33.6 pg (27.0-31.2); Mean Corpuscular Volume 95.6 fl (80-94); Mean Platelet Volume 7.6 fl (7.4-10.4); Monocytes # 0.3 K/mm3 (0.1-1.0); Monocytes % 8.6 % (1.7-9.3); Neutrophils % 63.2 % (37.0-80.0); Platelet Count 198 K/mm3 (142-424); Red Blood Count 2.33 M/mm3 (4.60-6.20); Red Cell Distribution Width 13.9 % (11.5-17.5); White Blood Count 3.1 K/mm3 (4.8-10.8)
[2024-07-18 07:29] LABS: Hemoglobin 7.8 g/dL (14.1-18.0)
[2024-07-18 08:00] VITALS: BP 132/77; PULSE 83; RESP 16; TEMP 36.7; O2SAT 95
[2024-07-18 08:20] LABS: HCV Ab Non Reactive (Non Reactive)
[2024-07-18] MEDS: PANTOPRAZOLE 40MG VIAL 40 MG IV (08:59)
[2024-07-18] MEDS: CARVEDILOL 12.5MG TABLET 12.5 MG PO (08:59)
--- NOTE | 2024-07-18 12:39 | P.PN_ITS ---
Subjective *Date: 07/18/24 *Time: 12:39 Interval history: No further melena today. No hematemesis or abdominal pain. Exam Data for Last 24 hours Vital signs and Labs for Last 24 Hours: Temp Pulse Resp BP Pulse Ox O2 Del Method O2 Flow Rate 98.1 F 83 16 132/77 95 Room Air 5 07/18/24 08:00 07/18/24 08:00 07/18/24 08:00 07/18/24 08:00 07/18/24 08:00 07/18/24 12:16 07/17/24 14:57 Laboratory Results - last 24 hr 07/17/24 11:30: Hepatitis C Antibody Non reactive, HIV 1&2 Antibody Rapid Nonreactive 07/17/24 16:35: Iron 58, TIBC 333, Iron Saturation 17.35936, Troponin I < 0.01 07/17/24 19:36: Troponin I < 0.01 07/18/24 05:39: WBC 3.1 L D, RBC 2.33 L, Hgb 7.8 L D, Hct 22.3 L, MCV 95.6 H, MCH 33.6 H, MCHC 35.2, RDW 13.9, Plt Count 198, MPV 7.6, Neut % (Auto) 63.2, Lymph % (Auto) 26.1, [place] % (Auto) 8.6, Eos % (Auto) 1.4, Baso % (Auto) 0.7, Neut # (Auto) 2.0, Lymph # (Auto) 0.8, [place] # (Auto) 0.3, Eos # (Auto) 0.0, Baso # (Auto) 0.0, Sodium 134 L, Potassium 3.2 L, Chloride 106, Carbon Dioxide 25, Anion Gap 6.2, BUN 7 L D, Creatinine 0.70, Estimated Creat Clear 63, Estimated GFR 111, Est GFR ( Amer) 135, Glucose 80 D, Calcium 8.3 L, Magnesium 1.8, Total Bilirubin 0.5, AST 27, ALT 20 D, Alkaline Phosphatase 52, Total Protein 4.9 L, Albumin 3.2 L D, Globulin 1.7, Albumin/Globulin Ratio 1.9 H I & O for Last 24 hours: Intake & Output 07/15/24 07/16/24 07/17/24 07/18/24 23:59 23:59 23:59 23:59 Intake Total 100 / 100 750 / 750 Output Total 0 / 0 0 / 0 Balance 100 / 100 750 / 750 Weight 147 lb 2 oz 146 lb Assessment and Plan *Assessment and plan (1) Upper GI bleeding: Status: Acute Category: Medical Code(s): K92.2 - Gastrointestinal hemorrhage, unspecified (2) Melena: Status: Acute Category: Medical Code(s): K92.1 - Melena (3) Nida-Weaver tear: Status: Acute Category: Medical Code(s): K22.6 - Gastro-esophageal laceration-hemorrhage syndrome (4) Anemia due to gastrointestinal blood loss: Status: Acute Category: Medical Code(s): D50.0 - Iron deficiency anemia secondary to blood loss (chronic) Plan 1. Acute upper GI bleed secondary to Nida-Weaver tear exacerbated by anticoagulation use. The patient is stabilized. His hemoglobin and hematocrit dropped and this may be some delusional effect from IV fluids. He has no further melena and blood is a cathartic. I do suspect no further bleeding presently and he is clinically very stable otherwise. I would recommend blood transfusion based upon his present low hemoglobin in the setting of acute GI bleeding. I would continue PPI therapy. We can resume Plavix/aspirin but again, would want transfusion on board. I will follow-up the biopsies since he does have some chronic gastritis and would like to rule out H. pylori.
[2024-07-18 13:17] LABS: Hematocrit 22.7 % (42.0-52.0); Hemoglobin 8.1 g/dL (14.1-18.0)
--- NOTE | 2024-07-18 13:28 | P.DS_ITS ---
General Admission date:: 07/17/24 HPI HPI HPI: Mr. Doll is a 73-year-old male with history of hypertension, CAD, PAD, BPH, arthritis. Presented from his primary care's office to the ER due to concern of dyspnea with exertion. Initial concern for possible pneumonia versus other cause of his fatigue. Patient complains of having black tarry stool, dizziness, weakness progressive over the past week. Denies any fever, chest pain, cough. Has been having some abdominal pain. Feeling dizzy on exertion. Initial workup in the ER concerning for hemoglobin of 9.1, stool guaiac positive. GI consulted and patient being taken for EGD today. Medicine consulted for admission. Of note, patient is on aspirin and Plavix for his PAD/CAD. No stenting in several years. Has never had cardiac stents. Stable on room air. at bed side helps supplement history. Hospital Course Hospital Course Hospital Course: 73-year-old male who presents with dyspnea with exertion. Found to have significant anemia. Concern for GI bleed given positive stool guaiac. #Upper GI bleed #Symptomatic anemia secondary to blood loss - Patient on aspirin and Plavix for his PAD/CAD. - Discussed case with GI, found to have Nida-Weaver tear on EGD s/p submucosal epinephrine and APC ablation 07/17/24. - Started Protonix 40mg daily. - Hgb stable at 8.1. No further episodes of bleeding, with symptoms of dyspnea improved. Tolerating oral tolerance well, ambulating well. - Discussed with GI, DAPT can be resumed. - Will follow-up with PCP within 1 week. #CAD #PAD #Hypertension - Continue ASA, plavix. - Continue amlodipine 10 mg daily, Lipitor 40 mg daily for cholesterol, losartan 100 mg daily, and nebivolol 10 mg daily. #BPH - Continue tamsulosin 0.4 mg daily Exam Data for Last 24 hours Vital signs and Labs for Last 24 Hours: Temp Pulse Resp BP Pulse Ox O2 Del Method O2 Flow Rate 98.1 F 83 16 132/77 95 Room Air 5 07/18/24 08:00 07/18/24 08:00 07/18/24 08:00 07/18/24 08:00 07/18/24 08:00 07/18/24 12:16 07/17/24 14:57 Laboratory Results - last 24 hr 07/17/24 11:30: Hepatitis C Antibody Non reactive, HIV 1&2 Antibody Rapid Nonreactive 07/17/24 16:35: Iron 58, TIBC 333, Iron Saturation 17.88645, Troponin I < 0.01 07/17/24 19:36: Troponin I < 0.01 07/18/24 05:39: WBC 3.1 L D, RBC 2.33 L, Hgb 7.8 L D, Hct 22.3 L, MCV 95.6 H, MCH 33.6 H, MCHC 35.2, RDW 13.9, Plt Count 198, MPV 7.6, Neut % (Auto) 63.2, Lymph % (Auto) 26.1, [place] % (Auto) 8.6, Eos % (Auto) 1.4, Baso % (Auto) 0.7, Neut # (Auto) 2.0, Lymph # (Auto) 0.8, [place] # (Auto) 0.3, Eos # (Auto) 0.0, Baso # (Auto) 0.0, Sodium 134 L, Potassium 3.2 L, Chloride 106, Carbon Dioxide 25, Anion Gap 6.2, BUN 7 L D, Creatinine 0.70, Estimated Creat Clear 63, Estimated GFR 111, Est GFR ( Amer) 135, Glucose 80 D, Calcium 8.3 L, Magnesium 1.8, Total Bilirubin 0.5, AST 27, ALT 20 D, Alkaline Phosphatase 52, Total Protein 4.9 L, Albumin 3.2 L D, Globulin 1.7, Albumin/Globulin Ratio 1.9 H 07/18/24 13:08: Hgb 8.1 L, Hct 22.7 L I & O for Last 24 hours: Intake & Output 07/15/24 07/16/24 07/17/24 07/18/24 23:59 23:59 23:59 23:59 Intake Total 100 / 100 750 / 750 Output Total 0 / 0 0 / 0 Balance 100 / 100 750 / 750 Weight 66.735 kg 66.224 kg Constitutional Constitutional: no acute distress *Routine HEENT Exam Head: Present normocephalic Eye: Present EOMI and PERRL ENT: Present mucous membranes moist *Routine Neck Exam Neck: Present supple; Absent lymphadenopathy *Routine Respiratory Exam Respiratory: Present CTA bilaterally *Routine Cardiovascular Exam Cardiovascular: Present RRR *Routine Abdominal Exam Abdominal: Present soft and normoactive bowel sounds; Absent tenderness *Routine Extremities Exam Extremities: Absent cyanosis, clubbing or edema *Routine Skin Exam Skin: Present warm; Absent rash *Routine Neurological Exam Neurological: Present alert and oriented X3 Results Data Completed and Pending Labs on day of discharge: Labs from last 24 hours 07/18/24 07/18/24 07/17/24 13:08 05:39 19:36 WBC 3.1 L D RBC 2.33 L Hgb 8.1 L 7.8 L D Hct 22.7 L 22.3 L MCV 95.6 H MCH 33.6 H MCHC 35.2 RDW 13.9 Plt Count 198 MPV 7.6 Neut % (Auto) 63.2 Lymph % (Auto) 26.1 [place] % (Auto) 8.6 Eos % (Auto) 1.4 Baso % (Auto) 0.7 Neut # (Auto) 2.0 Lymph # (Auto) 0.8 [place] # (Auto) 0.3 Eos # (Auto) 0.0 Baso # (Auto) 0.0 Sodium 134 L Potassium 3.2 L Chloride 106 Carbon Dioxide 25 Anion Gap 6.2 BUN 7 L D Creatinine 0.70 Estimated Creat Clear 63 Estimated GFR 111 Est GFR ( Amer) 135 Glucose 80 D Calcium 8.3 L Magnesium 1.8 Iron TIBC Iron Saturation Total Bilirubin 0.5 AST 27 ALT 20 D Alkaline Phosphatase 52 Troponin I < 0.01 Total Protein 4.9 L Albumin 3.2 L D Globulin 1.7 Albumin/Globulin Ratio 1.9 H Hepatitis C Antibody HIV 1&2 Antibody Rapid 07/17/24 07/17/24 16:35 11:30 WBC RBC Hgb Hct MCV MCH MCHC RDW Plt Count MPV Neut % (Auto) Lymph % (Auto) [place] % (Auto) Eos % (Auto) Baso % (Auto) Neut # (Auto) Lymph # (Auto) [place] # (Auto) Eos # (Auto) Baso # (Auto) Sodium Potassium Chloride Carbon Dioxide Anion Gap BUN Creatinine Estimated Creat Clear Estimated GFR Est GFR ( Amer) Glucose Calcium Magnesium Iron 58 TIBC 333 Iron Saturation 17.28948 Total Bilirubin AST ALT Alkaline Phosphatase Troponin I < 0.01 Total Protein Albumin Globulin Albumin/Globulin Ratio Hepatitis C Antibody Non reactive HIV 1&2 Antibody Rapid Nonreactive DS: Diagnosis Discharge Diagnosis (1) Upper GI bleeding: Status: Acute Code(s): K92.2 - Gastrointestinal hemorrhage, unspecified (2) Melena: Status: Acute Code(s): K92.1 - Melena (3) Nida-Weaver tear: Status: Acute Code(s): K22.6 - Gastro-esophageal laceration-hemorrhage syndrome (4) Anemia due to gastrointestinal blood loss: Status: Acute Code(s): D50.0 - Iron deficiency anemia secondary to blood loss (chronic) Meds Home Medications and Allergies Home Medications ?Medication ?Instructions ?Recorded ?Confirmed ?Type amlodipine 10 mg tablet 10 mg PO HS 03/16/24 07/18/24 History aspirin 81 mg capsule 81 mg PO DAILY 03/16/24 07/17/24 History atorvastatin 40 mg tablet 40 mg PO HS 03/16/24 07/18/24 History clopidogrel 75 mg tablet (Plavix) 75 mg PO DAILY 03/16/24 07/17/24 History hydroxychloroquine 200 mg tablet 200 mg PO DAILY 03/16/24 07/17/24 History multivit with minerals-folic 1 cap PO DAILY 03/16/24 07/17/24 History acid-lycopene 0.4 mg-600 mcg capsule (Men's Daily) tamsulosin 0.4 mg capsule (Flomax) 0.4 mg PO HS 03/16/24 07/18/24 History clobetasol 0.05 % topical ointment 1 applic topical BID 07/17/24 07/17/24 History losartan 100 mg tablet 100 mg PO DAILY 07/17/24 07/17/24 History nebivolol 10 mg tablet 10 mg PO DAILY 07/17/24 07/17/24 History pantoprazole 40 mg tablet,delayed 40 mg PO DAILY #30 tabs 07/18/24 Rx release (Protonix) New Prescriptions to Start Prescriptions: pantoprazole [Protonix] Denny Maher Allergies Allergy/AdvReac Type Severity Reaction Status Date / Time diclofenac Allergy Verified 03/16/24 07:39 Penicillins Allergy Verified 03/16/24 07:39 Discharge Plan Disposition Patient Disposition: Home, Self-Care Follow up Plan Follow up with: Caleb Wyman MD [Primary Care Provider] - 08/01/24 11:15 am Prescriptions/Medication Reconciliation: New pantoprazole [Protonix] 40 mg tablet,delayed release (DR/EC) 40 mg PO DAILY Qty: 30 0RF Rx Instructions: Please take on an empty stomach. Continued tamsulosin [Flomax] 0.4 mg Capsule 0.4 mg PO HS aspirin 81 mg Capsule 81 mg PO DAILY atorvastatin 40 mg Tablet 40 mg PO HS clopidogrel [Plavix] 75 mg Tablet 75 mg PO DAILY Men's Daily 0.4-600 mg-mcg Capsule 1 cap PO DAILY amlodipine 10 mg Tablet 10 mg PO HS hydroxychloroquine 200 mg Tablet 200 mg PO DAILY clobetasol 0.05 % ointment 1 applic TOPICAL BID Patient Comments: APPLY OINTMENT TOPICALLY TWICE DAILY TO HANDS FOR UP TO TWO WEEKS, REPEAT NEEDED losartan 100 mg tablet 100 mg PO DAILY nebivolol 10 mg tablet 10 mg PO DAILY Patient Comments: TAKE 1 TABLET BY MOUTH ONCE DAILY Problem Reconciliation Problems Reviewed?: Yes Patient Discharge Instructions Patient Instructions: Upper GI Endoscopy, DI for Gastrointestinal Bleeding Print Language: Azeri Providers Primary Care Provider: Caleb Wyman Admit Provider: Charles Puente Attending Provider: Charles Puente
--- NOTE | 2024-07-19 10:24 | SW/DCPLANNER ---
Spoke with patient on the phone. Patient stated that things are going well and that he was able to get his new medicine filled and is aware of his up coming DR visit. Patient stated that he has no concerns or questions at this time. Blossom Henderson
== END 2024-07-18 14:37 | disposition home or self-care (01) ==
LOC: ER 12:12 → 2ND 13:09
PROVIDERS: Internal Medicine Gastroenterology; Student in an Organized Health Care Education/Training Program; Admitting Provider Internal Medicine Adolescent Medicine; Emergency Provider Student in an Organized Health Care Education/Training Program; PCP Internal Medicine Adolescent Medicine; Visit Provider Internal Medicine Adolescent Medicine
PROC: 0DJ08ZZ Inspection of Upper Intestinal Tract, Via Natural or Artificial Opening Endoscopic (ICD-10-PCS; CPT 43235; principal; 2024-07-17 14:30)
DX: K22.6 Gastro-esophageal laceration-hemorrhage syndrome (principal); K31.7 Polyp of stomach and duodenum; K44.9 Diaphragmatic hernia without obstruction or gangrene; D62 Acute posthemorrhagic anemia; I73.9 Peripheral vascular disease, unspecified; I25.10 Atherosclerotic heart disease of native coronary artery without angina pectoris; I10 Essential (primary) hypertension; J44.9 Chronic obstructive pulmonary disease, unspecified; N40.0 Benign prostatic hyperplasia without lower urinary tract symptoms; Z79.899 Other long term (current) drug therapy
CPT/HCPCS: 43239; 43255; 36415; 71045; 74177; 80053; 82272; 83540; 83550; 83735; 84484; 85014; 85018; 85025; 86803; 86850; 87389; 88305; 93005; 99285; C2618; G0328; G0378; J0171; Q9967

== ENCOUNTER 2025-01-22 07:34 | Outpatient (CLI) | payer MEDICARE, SELFPAY ==
--- OUTSIDE RECORDS SUMMARY | 2025-01-22 07:36 | XMS_ITS | Data Portability ---
Author Organization [facility] GUERITA Antoine FIDELITY CLOSED Address [address] [place] [address] Care Team Providers Care Green Chain Operator Name Role Phone GOPI FANG Primary Care Provider [phone] LYN ANGEL Patient Coordinator Assessment No assessment recorded. Plan of Treatment Reminders Order Date Submit Date Provider Last Modified By Organization Details Last Modified Time Details Appointments None recorded. Lab None recorded. Referral None recorded. Procedures None recorded. Surgeries None recorded. Imaging None recorded. Medication Orders clobetasol 0.05 % topical ointment 2023 024 [email or web address] 8 [facility] [address], [address] [place] [address], [id number], 13:47:27 fluocinonid e 0.05 % topical ointment 2023 024 [email or web address] 8 [facility] [address], [address] [place] [address], [id number], 12:06:14 Patient TargetsNo targets recorded. Patient Instructions Encounter Date Encounter Id Patient Instructions Last Modified By Organization Details Last Modified Time 06/14/2024 [id number] Recommended returning to clinic in 3 months for FBSE [email or web address] Not available 06/14/2024 08:17:17 Reason for Referral None Reported. Problems Name Problem SNOMED Code Status Onset Date Resolution Date Notes Provider Name and Address Organization Details Recorded Time Spermatoc jarrod 76369066 Active 2015 From Automated Load;Provi rachel: Justin Ibarra;Sta tus: Active Not Available [facility] 13:12:03 History of malignant neoplasm of skin 119258173 Active 2023 Lidia Martin [facility] 07:49:08 Problem Notes None recorded. Procedures Surgical History Date Name Laterality Status Provider Name and Address Organization Details Recorded Time 09/05/2024 DAK - Cryo AK completed [facility] 09/05/2024 09:09:16 06/14/2024 DAK - Cryo AK completed [facility] 06/14/2024 08:12:28 03/14/2024 DAK - Cryo AK completed [facility] 03/14/2024 09:04:17 09/15/2023 [facility] Cryo AK completed [facility] 09/15/2023 07:52:28 Imaging Results None recorded. Procedure Notes None recorded. Medical Equipment None Reported. Allergies Allergen ID Allergen Name Allergen Category Reaction Reaction Severity Criticality Documentation Date Start Date Code Code System Note Provider Name and Address Organization Details Recorded Time 403100 Product containin g penicilli n (product) medicatio n Not available Not available Not available 09/15/2023 37951 8001 SNOMED Christiana Thorne [facility] 07:37:45 Medications Name Sig Start Date Stop Date Status Note LastModified by Organization Details LastModified Time Plaquenil 200 mg tablet 09/15 completed Medicatio n Descripti on: hydroxych loroquine ; Route:ora l; refills:0 Not Available Not Available Not Available nabumeton e 750 mg tablet Two times a day active Frequency : bid;Medic ation Descripti on: nabumeton e; Dosage:1; Route:ora l; refills:0 Not Available Not Available Not Available Multiple Vitamin capsule Daily active Frequency : daily;Med ication Descripti on: multivita min; Dosage:1; Route:ora l; refills:0 Not Available Not Available Not Available amlodipin e 2.5 mg tablet Two times a day active Frequency : bid;Medic ation Descripti on: amlodipin e; Dosage:1; Route:ora l; refills:0 Not Available Not Available Not Available fluocinon ailyn 0.05 % topical ointment twice a day for up to two weeks, take one week break, repeat as needed 2023 active Not Available Not Available Not Avai lable Plavix 75 mg tablet Daily active Frequency : daily;Med ication Descripti on: clopidogr el; Dosage:1; Route:ora l; refills:0 Not Available Not Available Not Available tramadol 50 mg tablet 09/15 completed Medicatio n Descripti on: tramadol; Route:ora l; refills:0 Not Available Not Available Not Available simvastat in 20 mg tablet 06/14 completed Medicatio n Descripti on: simvastat in; Route:ora l; refills:0 Not Available Not Available Not Available aspirin 81 mg tablet Daily active Frequency : daily;Med ication Descripti on: aspirin; Dosage:1; Route:ora l; refills:0 Not Available Not Available Not Available clobetaso l 0.05 % topical ointment twice a day to hands for up to two weeks, take 4 day break, repeat as needed 2023 active Not Available Not Available Not Avai lable losartan 100 mg tablet 06/14 completed Medicatio n Descripti on: losartan; Route:ora l; refills:0 Not Available Not Available Not Available cyclobenz aprine 5 mg tablet As needed 09/15 completed Frequency : prn;Medic ation Descripti on: cyclobenz aprine; Route:ora l; refills:0 Not Available Not Available Not Available atorvasta tin active Not Available Not Available Not Available Plaquenil active Not Available Not Brianna ilable Not Available Iron (ferrous sulfate) active Not Available Not Available Not Available Bystolic 10 mg tablet active Medicatio n Descripti on: nebivolol ; Route:ora l; refills:0 Not Available Not Available Not Available Vitals None Recorded Social History Question Answer Notes LastModified by Organizat ion Details LastModified Time What Was The Date Of Your Most Recent Tobacco Screening? 09/15/2023 Information not available 09/15/2023 Sex: Male Functional Status Question Answer Note LastModified by Organization D etails LastModified Time Do you or have you ever used any other forms of tobacco or nicotine? No Information not available 09/15/2023 Mental Status None recorded. Family History Nothing Reported. Medical History Condition Response Basal Cell Carcinoma Y Past Encounters Encounter ID Performer Location Encounter Start Date Encounter Closed Date Diagnosis/Indication Diagnosis SNOMED-CT Code Diagnosis ICD10 Code Diagnosis Note [id number] LYN HEALY MD [address] [address] 09/15/2023 07:20:06 09/15/2023 07:58:39 History of malignant neoplasm of skin 003530054 Z85.828 - No evidence of recurrence today- Call with any worrisome lesions or if treated lesions return- Return at regular intervals for skin exam as recommende d Most recent, 08/2022 Multiple b enign melanocytic nevi 167981568 D22.5 - Benign moles seen on exam today - SPF 30 or higher broad-spec trum sunscreen recommende d with re-applica tion every 2 hours - Discussed sun protection measures, including wide-brimm ed hat, sun-protec tive clothing, and avoidance of sun during peak hours of 10am-4pm - Avoid tanning beds as these can increase the chances of all 3 types of skin cancer - Instructed to monitor for changes and to call us for appointmen t with any changing or worrisome lesions Seborrheic keratosis 394 689814 L82.1 - Benign overgrowth s of skin - Hereditary Senile angioma 8019852 I 78.1 - Benign blood vessel growths - Hereditary Solar lentigo 06681132 L 81.4 - Benign brown spots - Sun-induce d Actinic keratosis 724052 007 L57.0 Actinic keratoses are precancero us lesions that may progress to squamous cell carcinoma if untreated. UV light and genetics may increase risk. Treated lesions should blister, scab over, and heal within a few weeks. If treated lesion(s) does not resolve within 1-2 months, patient agrees to follow up for re-evaluat ion. [id number] LYN HEALY MD [address] [address] 03/14/2024 08:34:35 03/14/2024 09:08:25 Multiple benign melanocytic nevi 487364825 D22.5 - Benign moles seen on exam today - SPF 30 or higher broad-spec trum sunscreen recommende d with re-applica tion every 2 hours - Discussed sun protection measures, including wide-brimm ed hat, sun-protec tive clothing, and avoidance of sun during peak hours of 10am-4pm - Avoid tanning beds as these can increase the chances of all 3 types of skin cancer - Instructed to monitor for changes and to call us for appointmen t with any changing or worrisome lesions Seborrheic keratosis 394 275591 L82.1 - Benign overgrowth s of skin - Hereditary Senile angioma 7958741 I 78.1 - Benign blood vessel growths - Hereditary Solar lentigo 84096276 L 81.4 - Benign brown spots - Sun-induce d History of malignant neoplasm of skin 276835908 Z85.828 - No evidence of recurrence today- Call with any worrisome lesions or if treated lesions return- Return at regular intervals for skin exam as recommende d Most recent, 08/2022 Psoriasis vulgaris 1907 L40.0 Discussed that psoriasis is a chronic disease that can wax and wane. Psoriasis has been linked to arthritis and cardiovasc ular disease. Healthy diet, exercise and age-approp riate monitoring with your PCP for hypertensi on and hyperlipid emia are recommende d. Milder cases may be managed with topical creams. UV light in a controlled setting is sometimes used to manage psoriasis. Oral or injected treatments may help more severe or unresponsi ve disease. Will send in fluocinoni de 0.05% ointment to use twice a day for up to two weeks, take one week break, repeat as needed Prolonged use of topical steroid may cause skin thinning, discolorat ion, stretch verduzco, and/or acne. Skin folds and facial skin are even more prone to such side effects. Only use the steroids as directed. Actinic keratosis 007 L57.0 Actinic keratoses are precancero us lesions that may progress to squamous cell carcinoma if untreated. UV light and genetics may increase risk. Treated lesions should blister, scab over, and heal within a few weeks. If treated lesion(s) does not resolve within 1-2 months, patient agrees to follow up for re-evaluat ion. [id number] LYN HEALY MD [address] [address] 06/14/2024 07:30:10 06/14/2024 08:21:36 Psoriasis vulgaris 219349228 L40.0 Discussed that psoriasis is a chronic disease that can wax and wane. Psoriasis has been linked to arthritis and cardiovasc ular disease. Healthy diet, exercise and age-approp riate monitoring with your PCP for hypertensi on and hyperlipid emia are recommende d. Milder cases may be managed with topical creams. UV light in a controlled setting is sometimes used to manage psoriasis. Oral or injected treatments may help more severe or unresponsi ve disease. Recommende d soaking hands prior to using ointmentWi ll increase to clobetasol 0.05% ointment to use twice a day for up to two weeks, take 4 day break, repeat as needed Prolonged use of topical steroid may cause skin thinning, discolorat ion, stretch verduzco, and/or acne. Skin folds and facial skin are even more prone to such side effects. Only use the steroids as directed. Has been on HCQ for RA for 6-7 years. Disc that this could worsen/cau se psoriasis, but this is usually within a few weeks/zaynab hs after starting. Actinic keratosis 007 L57.0 Actinic keratoses are precancero us lesions that may progress to squamous cell carcinoma if untreated. UV light and genetics may increase risk. Treated lesions should blister, scab over, and heal within a few weeks. If treated lesion(s) does not resolve within 1-2 months, patient agrees to follow up for re-evaluat ion. Epidermoid cyst of skin 848151830 L72.0 Cysts are dilated follicles with keratinous material within. Can become inflamed if they rupture. Risks, benefits, side effects, alternativ es and options of excision were discussed with patient and the patient voiced understand ing. Rec no treatment if not bothersome . If it starts to change or become painful let us know. [id number] LYN HEALY MD [address] [id number] 09/05/2024 08:32:21 09/05/2024 11:00:24 History of malignant neoplasm of skin 113057055 Z85.828 - No evidence of recurrence today- Call with any worrisome lesions or if treated lesions return- Return at regular intervals for skin exam as recommende d Most recent, 08/2022 Multiple b enign melanocytic nevi 474967907 D22.5 - Benign moles seen on exam today - SPF 30 or higher broad-spec trum sunscreen recommende d with re-applica tion every 2 hours - Discussed sun protection measures, including wide-brimm ed hat, sun-protec tive clothing, and avoidance of sun during peak hours of 10am-4pm - Avoid tanning beds as these can increase the chances of all 3 types of skin cancer - Instructed to monitor for changes and to call us for appointmen t with any changing or worrisome lesions Seborrheic keratosis 394 426449 L82.1 - Benign overgrowth s of skin - Hereditary Solar lentigo 93878462 L 81.4 - Benign brown spots - Sun-induce d Senile angioma 2364421 I 78.1 - Benign blood vessel growths - Hereditary Psoriasis vulgaris 7 L40.0 Discussed that psoriasis is a chronic disease that can wax and wane. Psoriasis has been linked to arthritis and cardiovasc ular disease. Healthy diet, exercise and age-approp riate monitoring with your PCP for hypertensi on and hyperlipid emia are recommende d. Milder cases may be managed with topical creams. UV light in a controlled setting is sometimes used to manage psoriasis. Oral or injected treatments may help more severe or unresponsi ve disease. Start moisturizi ng handsRec vaseline under cotton gloves at nightPt has clobetasol 0.05% ointment to use twice a day for up to two weeks, take one week break, repeat as needed Prolonged use of topical steroid may cause skin thinning, discolorat ion, stretch verduzco, and/or acne. Skin folds and facial skin are even more prone to such side effects. Only use the steroids as directed. Actinic keratosis L57.0 Actinic keratoses are precancero us lesions that may progress to squamous cell carcinoma if untreated. UV light and genetics may increase risk. Treated lesions should blister, scab over, and heal within a few weeks. If treated lesion(s) does not resolve within 1-2 months, patient agrees to follow up for re-evaluat ion. Health Concerns Section Related Observation LastModified by Organization Detai ls LastModified Time None Recorded Concern Status LastModified by Organization Details LastModified Time None Recorded Advance Directives Directive None Recorded Payers Insurance Date Sequence Insurance Name Policy Number Policy Victoria Covered Member ID Victoria Member ID Guarantor Name 01/03/2025 1 [place] Dima Doll [id number] Dima Doll 11/08/2024 PAYMENT PLAN Dima Doll 11/08/2024 PAYMENT PLAN Dima Doll 09/02/2024 2 [employer] (MEDICARE SUPPLEMENT) Dima Doll [id number] Dima Doll Notes Date Note Type Note Provider Name and Address Organization Details Recorded Time 09/15/2023 text/html Here for a full body skin examination - last skin check: 2022 - history of skin cancer - BCC SCC MM BCC and SCC BCC and MM SCC and MM BCC, SCC, and MM BCC, Ak's. - last skin cancer was in 2022 - spots of concern today: no areas of concern today. LYN HEALY MD [address] [place] [address], [phone], [facility] 09/15/2023 16:13:45 03/14/2024 text/html Rash/Skin LesionReported bypatient.Notes:Loca tion: handsDuration: 2 mosReports: redness, skin peeling, itchingTreatment: rx steroid cream (PDNK name of cream) Here for a full body skin examination - last skin check: August 2023- history of skin cancer - BCC SCC MM BCC and SCC BCC and MM SCC and MM BCC, SCC, and MM BCC, Ak's.- last skin cancer was in 2022- spots of concern today: hands. LYN HEALY MD [address] [place] [address], [phone], [facility] 03/14/2024 09:07:23 06/14/2024 text/html Patient is here for psoriasis - location: hands- treatments tried in past: steroid cream (unspecified)- currently using: fluocinonide ointment- hot, tender joints, stiffness in joints lasting longer than an hour, or pain in the Achilles tendon? no- reports: some improvement but still presentPt is accompanied by LYN HEALY MD [address] [place] [address], [phone], [facility] 06/14/2024 19:33:17 09/05/2024 text/html Here for a full body skin examination - last skin check: 02/2024- history of skin cancer - BCC- last skin cancer was in 2022- spots of concern today: none Pt is accompanied by LYN HEALY MD [address] [place], [phone], [facility] 09/05/2024 15:38:47
[2025-01-22 08:25] VITALS: PULSE 86; PULSE 90
[2025-01-22] MEDS: ALBUTEROL 0.083% 2.5 MG/3 ML NEB IH (08:25)
== END 2025-01-22 23:59 | disposition home or self-care (01) ==
LOC: RT 07:35
PROVIDERS: PCP Internal Medicine Adolescent Medicine; Visit Provider Internal Medicine Pulmonary Disease
DX: J44.9 Chronic obstructive pulmonary disease, unspecified (principal)
CPT/HCPCS: 94060; 94618; 94640; 94726; 94729

== ENCOUNTER 2025-02-06 06:28 | Outpatient (CLI) | payer MEDICARE, SELFPAY ==
--- NOTE | 2025-02-06 | CT_ITS ---
FINAL REPORT TECHNIQUE: Thin section axial images were obtained from the lung apices to the upper abdomen by computed tomography. Reformatted images were obtained and reviewed. This study was performed with techniques to keep radiation doses al low as reasonably achievable (ALARA). Individualized dose reduction techniques using automated exposure control or adjustment of mA and/or kV according to the patient's size were employed. CLINICAL HISTORY: .former smoker quit 3-4 years, 1ppd x53 years when smoking COMPARISON: 03/02/2024 FINDINGS: CHEST CT LOW DOSE 74-year-old male, former smoker who quit 3-4 years ago, 79-mzay-bkii history CTDI vol (mGy): 2.90 DLP (mGy-cm): 109.94 There is no axillary adenopathy. There is no mediastinal or hilar mass or adenopathy. The heart is normal in size. There is no pericardial or pleural effusion. There is mild to moderate emphysema. Lung window images demonstrate that the previously noted small nodule in the peripheral right upper lobe is not visualized on the current exam. There is a spiculated density with adjacent round lucency in the posterior aspect of the right middle lobe, best seen on images #56 and 57 of series 4. The overall appearance is similar to the prior I am. Limited images of the upper abdomen are unremarkable. IMPRESSION: Lung-RADS category 2. Recommend 12 month follow up low dose chest CT. Reviewed, Interpreted and Dictated by Axel Torres MD Transcribed by Yolanda Pablo Authenticated and . [facility]
--- OUTSIDE RECORDS SUMMARY | 2025-02-06 06:31 | XMS_ITS | Data Portability ---
Author Organization [facility] GUERITA Antoine [place] CLOS[facility] Address [address] [place] [address] Care Team Providers Care Portal Administrator Name Role Phone GOPI FANG Primary Care Provider LYN ANGEL Shell Mold Bonder Assessment No assessment recorded. Plan of Treatment Reminders Order Date Submit Date Provider Last Modified By Organization Details Last Modified Time Details Appointments None recorded. Lab None recorded. Referral None recorded. Procedures None recorded. Surgeries None recorded. Imaging None recorded. Medication Orders clobetasol 0.05 % topical ointment 2023 024 [email or web address] [id number] [facility] [address], [address] [place] [address], [id number], 13:47:27 fluocinonid e 0.05 % topical ointment 2023 024 [email or web address] 8 [facility] [address], [address] [place] [address], [id number], 12:06:14 Patient TargetsNo targets recorded. Patient Instructions Encounter Date Encounter Id Patient Instructions Last Modified By Organization Details Last Modified Time 06/14/2024 [id number] Recommended returning to clinic in 3 months for FBSE [email or web address] Not available 06/14/2024 08:17:17 Reason for Referral None Reported. 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 Procedures Surgical History Date Name Laterality Status Provider Name and Address Organization Details Recorded Time 09/05/2024 DAK - Cryo [place] completed [facility] 09/05/2024 09:09:16 06/14/2024 DAK - Cryo [place] completed [facility] 06/14/2024 08:12:28 03/14/2024 DAK - Cryo [place] completed [facility] 03/14/2024 09:04:17 09/15/2023 [facility] Cryo [place] completed [facility] 09/15/2023 07:52:28 Imaging Results None recorded. Procedure Notes None recorded. Medical Equipment None Reported. Allergies Allergen ID Allergen Name Allergen Category Reaction Reaction Severity Criticality Documentation Date Start Date Code Code System Note Provider Name and Address Organization Details Recorded Time 692293 Product containin g penicilli n (product) medicatio n Not available Not available Not available 09/15/2023 93929 8001 SNOMED Christiana Thorne [facility] 07:37:45 Medications Name Sig Start Date Stop [...] Of Your Most Recent Tobacco Screening? 09/15/2023 [email or web address] Information not available 09/15/2023 Sex: Male Functional Status Question Answer Note LastModified by Organization D etails LastModified Time Do you or have you ever used any other forms of tobacco or nicotine? No [email or web address] Information not available 09/15/2023 Mental Status None recorded. Family History Nothing Reported. Medical History Condition Response Basal Cell Carcinoma Y Past Encounters Encounter ID Performer Location Encounter Start Date Encounter Closed Date Diagnosis/Indication Diagnosis SNOMED-CT Code Diagnosis ICD10 Code Diagnosis Note [id number] LYN HEALY MD [address] [address] 09/15/2023 07:20:06 09/15/2023 07:58:39 History of malignant neoplasm of skin 133559765 Z85.828 - No evidence of recurrence today- Call with any worrisome lesions or if treated lesions return- Return at regular intervals for skin exam as recommende d Most recent, 08/2022 Multiple b enign melanocytic nevi 431980204 D22.5 - Benign moles seen on exam [...] changing or worrisome lesions Seborrheic keratosis 394 575065 L82.1 - Benign overgrowth s of skin - Hereditary 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 UV light and genetics may increase risk. Treated lesions should blister, scab over, and heal within a few weeks. If treated lesion(s) does not resolve within 1-2 months, patient agrees to follow up for re-evaluat ion. [id number] LYN HEALY MD [address] [address] 03/14/2024 08:34:35 03/14/2024 09:08:25 Multiple benign melanocytic nevi 105950400 D22.5 - Benign moles seen on exam [...] changing or worrisome lesions Seborrheic keratosis 394 309001 L82.1 - Benign overgrowth s of skin - Hereditary Senile angioma 4372212 I 78.1 - Benign blood vessel growths - Hereditary Solar lentigo 55976525 L 81.4 - Benign brown spots - Sun-induce d History of malignant neoplasm of skin 808939135 Z85.828 - No evidence of recurrence today- Call with any worrisome lesions or if treated lesions return- Return at regular intervals for skin exam as recommende d Most recent, 08/2022 Psoriasis vulgaris 9017 L40.0 Discussed that psoriasis is a chronic [...] agrees to follow up for re-evaluat ion. [id number] LYN HEALY MD [address] [address] 06/14/2024 07:30:10 06/14/2024 08:21:36 Psoriasis vulgaris 986345818 L40.0 Discussed that psoriasis is a chronic [...] for re-evaluat ion. Epidermoid cyst of skin 910457739 L72.0 Cysts are dilated follicles with keratinous material within. Can become inflamed if they rupture. Risks, benefits, side effects, alternativ es and options of excision were discussed with patient and the patient voiced understand ing. Rec no treatment if not bothersome . If it starts to change or become painful let us know. [id number] LYN HEALY MD [address] [address] 09/05/2024 08:32:21 09/05/2024 11:00:24 History of malignant neoplasm of skin 736927156 Z85.828 - No evidence of recurrence today- Call with any worrisome lesions or if treated lesions return- Return at regular intervals for skin exam as recommende d Most recent, 08/2022 Multiple b enign melanocytic nevi 918400651 D22.5 - Benign moles seen on exam [...] changing or worrisome lesions Seborrheic keratosis 394 027308 L82.1 - Benign overgrowth s of skin - Hereditary Solar lentigo 32712437 L 81.4 - Benign brown spots - Sun-induce d Senile angioma 0689445 I 78.1 - Benign blood vessel growths [...] Victoria Member ID Guarantor Name 01/03/2025 1 [place] Dima Doll [id number] Dima Vazquez [place] 01/28/2025 PAYMENT PLAN Dima Doll 11/08/2024 PAYMENT PLAN Dima Doll 09/02/2024 2 [employer] (MEDICARE SUPPLEMENT) Dima Doll [id number] Dima Vazquez Doll Notes Date Note Type Note Provider Name and Address Organization Details Recorded Time 09/15/2023 text/html Here for a full body skin examination - last skin check: 2022 - history of skin cancer - BCC, Ak's. - last skin cancer was in 2022 - spots of concern today: no areas of concern today. LYN HEALY MD [address] [place] [address], [phone], [facility] 09/15/2023 16:13:45 03/14/2024 text/html Rash/Skin LesionReported bypatient.Notes:Loca tion: handsDuration: 2 mosReports: redness, skin peeling, itchingTreatment: rx steroid cream (PDNK name of cream) Here for a full body skin examination - last skin check: August 2023- history of skin cancer - BCC, Ak's.- last skin cancer was in 2022- spots of concern today: hands. LYN HEALY MD [address] [place] [address], [phone], [facility] 03/14/2024 09:07:23 06/14/2024 text/html Patient is here for psoriasis - location: hands- treatments tried in past: steroid cream (unspecified)- currently using: fluocinonide ointment- hot, tender joints, stiffness in joints lasting longer than an hour, or pain in the Achilles tendon? no- reports: some improvement but still presentPt is accompanied by LYN HEALY MD [address] [place] [address], [phone], [facility] 06/14/2024 19:33:17 09/05/2024 text/html Here for a full body skin examination - last skin check: 02/2024- history of skin cancer - BCC- last skin cancer was in 2022- spots of concern today: none Pt is accompanied by LYN HEALY MD [address] [facility], [place], [phone], [facility] 09/05/2024 15:38:47
--- OUTSIDE RECORDS SUMMARY | 2025-02-06 06:31 | XMS_ITS | Clinical Summary ---
Author Organization [facility] [place] [address] Care Team Providers Care Neck Band Maker Name Role Phone Unavailable Primary Care Provider Unavailabl e Social History Tobacco Use Types Packs/Day Years Used Date Smoking Tobacco: Never Assessed Sex and Gender Information Value Date Recorded Sex Assigned at Not on file Legal Sex Male 1:52 AM EDT Gender Identity Not on file Sexual Orientation Not on file Plan of Treatment Health Maintenance Due Date Last Done Comments Annual Wellness Exam 1955 Hepatitis C Screening 1970 DTaP/TDaP/Td (1 - Tdap) 1971 Cologuard 1997 Colon Cancer Screening 1997 Colonoscopy 1997 FIT 1997 Sigmoidoscopy 1997 Virtual Colonography 1997 Pneumococcal Vaccine 50+ (1 of 1 - PCV) 2002 Zoster (1 of 2) 2002 COVID-19 Vaccine (2023-2 5 season) 2024 Influenza Vaccine (Season Ended) 2025 Hepatitis B Vaccine Aged Out No longe r eligible based on patient's age to complete this topic Meningococcal B Vaccine Aged Out No l onger eligible based on patient's age to complete this topic
== END 2025-02-06 23:59 | disposition home or self-care (01) ==
LOC: RAD 06:29
PROVIDERS: PCP Internal Medicine Adolescent Medicine; Visit Provider Internal Medicine Adolescent Medicine
DX: J43.9 Emphysema, unspecified (principal); R91.8 Other nonspecific abnormal finding of lung field; Z87.891 Personal history of nicotine dependence
CPT/HCPCS: 71271